=== PATIENT | female | born 1965 | race African-American/Black ===

== ENCOUNTER 2019-01-13 08:01 | Day surgery (SDC) | payer MEDICAID ==
[~2019-01-13 08:01] MED LIST: Midazolam 1 MG/ML 2 ML SDV ONE; Propofol 200 MG/20 ML SDV ONE; fentaNYL 100 MCG/2 ML SDV ONE
[2019-01-13] MEDS ORDERED: Lactated Ringers 1,000 ML IV SCH (08:45)
--- NOTE | 2019-01-13 10:01 | PCM.PREANE ---
Preanesthetic Assessment - Anesthesia/Transfusion/Family Hx Anesthesia History: Prior Anesthesia Without Reaction Family History of Anesthesia Reaction: No Transfusion History: No Prior Transfusion(s) Intubation History: Unknown - Review of Systems General: No Symptoms Pulmonary: No Symptoms Cardiovascular: No Symptoms Gastrointestinal: No Symptoms, Other (screening colonoscopy) Neurological: No Symptoms Other: Reports: None - Physical Assessment NPO Status Date: 01/12/19 NPO Status Time: 21:00 O2 Sat by Pulse Oximetry: 99 Respiratory Rate: 16 Vital Signs: Last Vital Signs Temp 36.3 C 01/13/19 08:42 Pulse 59 L 01/13/19 08:42 Resp 16 01/13/19 08:42 BP 117/71 01/13/19 08:42 Pulse Ox 99 01/13/19 08:42 Height: 5 ft 2 in Weight: 53.977 kg ASA Class: 2 Mental Status: Alert & Oriented x3 Airway Class: Mallampati = 1 Dentition: Reports: Missing Tooth/Teeth (only 3 teeth left) Thyro-Mental Finger Breadths: 3 Mouth Opening Finger Breadths: 3 ROM/Head Extension: Full Lungs: Clear to Auscultation, Normal Respiratory Effort Cardiovascular: Regular Rate, Regular Rhythm - Allergies Allergies/Adverse Reactions: Allergies Allergy/AdvReac Type Severity Reaction Status Date / Time Iodine and Iodide Containing Allergy Hives Verified 01/10/19 12:26 Produc - Blood Blood Available: No - Anesthesia Plan Pre-Op Medication Ordered: None - Acknowledgements Anesthesia Type Planned: MAC Pt an Appropriate Candidate for the Planned Anesthesia: Yes Alternatives and Risks of Anesthesia Discussed w Pt/Guardian: Yes Pt/Guardian Understands and Agrees with Anesthesia Plan: Yes PreAnesthesia Questionnaire HEENT History: Reports: None Cardiovascular History: Reports: Heart Murmur Respiratory History: Reports: Sleep Apnea Other Respiratory History: does not use CPAP Gastrointestinal History: Reports: GERD Genitourinary History: Reports: None [employer] History: Reports: , Other (See Below) (h/o ovarian cyst) Musculoskeletal History: Reports: Back Pain, Chronic, Fracture Other Musculoskeletal History: hx of fx ankle Neurological History: Reports: Migraines Psychiatric History: Reports: None Endocrine/Metabolic History: Reports: None Hematologic History: Reports: None Immunologic History: Reports: None Oncologic (Cancer) History: Reports: None Dermatologic History: Reports: None - Infectious Disease History Infectious Disease History: Reports: Chicken Pox - Past Surgical History Head Surgeries/Procedures: Reports: None Respiratory Surgical History: Reports: Other (See Below) Other Respiratory Surgeries/Procedures: pneumothorax x 2 Female Surgical History: Reports: Section, Tubal Ligation Musculoskeletal Surgical History: Reports: Arthroscopic Knee - SUBSTANCE USE Smoking Status *Q: Current Every Day Smoker (down to 4-5 cigarettes per day) Tobacco Use Within Last Twelve Months: Cigarettes Recreational Drug Use History: No - HOME MEDS Home Medications: Home Meds Diclofenac Sodium [Voltaren] 50 mg PO BID 01/10/19 [History] Nicotine [Habitrol] 14 mg TOP DAILY 01/10/19 [History] - CURRENT (IN HOUSE) MEDS Current Meds: Current Medications Lactated Ringer's (Ringers, Lactated) 1,000 mls @ 100 mls/hr IV ASDIRECTED [facility] Last Admin: 01/13/19 08:35 Dose: 100 mls/hr Discontinued Medications Fentanyl (Sublimaze) Confirm Administered Dose 100 mcg .ROUTE .STK-MED ONE Stop: 01/13/19 07:22 Midazolam HCl (Versed 1 Mg/Ml) Confirm Administered Dose 2 mg .ROUTE .STK-MED ONE Stop: 01/13/19 07:22 Propofol (Diprivan 20 Ml) Confirm Administered Dose 200 mg .ROUTE .STK-MED ONE Stop: 01/13/19 07:22
--- NOTE | 2019-01-13 12:03 | PCM.OPNOTE ---
- General Post-Op/Procedure Note Date of Surgery/Procedure: 01/13/19 Operative Procedure(s): Screening colonoscopy Findings: Normal colonoscopy Pre Op Diagnosis: Screening colonoscopy Post-Op Diagnosis: same Anesthesia Technique: MAC Primary Surgeon: Vero Benjamin Condition: Good
[2019-01-13 12:31] VITALS: BP 112/60
--- NOTE | 2019-01-13 12:31 | OR ---
SURGEON: VERO BENJAMIN MD DATE OF PROCEDURE: 01/13/2019 PREOPERATIVE DIAGNOSIS: Screening colonoscopy. POSTOPERATIVE DIAGNOSIS: Normal colonoscopy. PROCEDURE PERFORMED: Screening colonoscopy. PRIMARY SURGEON: Endoscopist, Vero Benjamin MD. ANESTHESIA: MAC. INSTRUMENT USED: Olympus colonoscope. EXTENT OF EXAM: To the cecum. PREPARATION: Good. LIMITATIONS: None. INDICATION FOR EXAMINATION: The patient is a 53-year-old female who presents for screening colonoscopy. The patient and I discussed the procedure, expected perioperative course, and risks including bleeding, infection, or damage to surrounding structures including perforation. The patient verbalized understanding and wishes to proceed. PROCEDURE IN DETAIL: The patient was brought into the endoscopy suite and placed in the left lateral decubitus position. A time-out was completed verifying the patient's name, age, date of , allergies, and procedure to be performed. Monitored anesthesia care was induced and continuous oxygen was provided via nasal cannula throughout the procedure. After adequate sedation was achieved, a digital rectal exam was performed. This exam showed mild hemorrhoidal disease. A well lubricated colonoscope was inserted into the rectum and advanced under direct visualization to the level of the cecum. The cecum was identified by both visual and anatomic landmarks. A photograph was taken of the cecal cap as well as with the scope retroflexed within the cecum. The scope was then fully withdrawn while examining the color, texture, anatomy, and integrity of the mucosa from the cecum to the anal canal. The findings were consistent with normal colonic mucosa. The scope was brought into the rectum and retroflexed to allow visualization of the anal canal opening. Again, some mild hemorrhoidal disease was noted. A photograph was taken and the scope was straightened out. The scope was then removed. The procedure was terminated. The cecum to anus time was 6 minutes. The patient tolerated the procedure well and was transferred to the PACU in stable condition. ENDOSCOPIC DIAGNOSIS: Normal colonoscopy. RECOMMENDATIONS: Follow up in clinic in 10 years. JAZMIN / TITA /[id number]
== END 2019-01-13 12:35 | disposition home or self-care (01) ==
LOC: MW.SDS 08:01
PROVIDERS: ATTEND Surgery
DX: Z12.11 Encounter for screening for malignant neoplasm of colon (principal); K64.9 Unspecified hemorrhoids; F17.210 Nicotine dependence, cigarettes, uncomplicated; K21.9 Gastro-esophageal reflux disease without esophagitis; G47.30 Sleep apnea, unspecified; G43.909 Migraine, unspecified, not intractable, without status migrainosus; M54.9 Dorsalgia, unspecified; G89.29 Other chronic pain; Z79.1 Long term (current) use of non-steroidal anti-inflammatories (NSAID); Z91.09 Other allergy status, other than to drugs and biological substances
CPT/HCPCS: 45378; J2001; J2250; J2704; J3010; J7120

== ENCOUNTER 2019-04-22 14:28 | Emergency (ER) | payer MEDICAID ==
--- NOTE | 2019-04-22 15:14 | EDM.PDOC ---
ED HPI GENERAL MEDICAL PROBLEM - General Chief Complaint: General Stated Complaint: ABDOMINAL PAIN AND SWOLLEN WRIST Time Seen by Provider: 04/22/19 14:45 Source of Information: Reports: Patient History Limitations: Reports: No Limitations - History of Present Illness INITIAL COMMENTS - FREE TEXT/NARRATIVE: HISTORY AND PHYSICAL: History of present illness: Patient is a 53-year-old female presents to the ED with complaint of abdominal pain x 7 days. She states she has had some nausea but denies vomiting, diarrhea , chest pain, SOB, fevers, chills. She denies significant past medical history. History of c-sections otherwise denies surgical history. She does have an appointment with Estefania Owens next week. Review of systems: As per history of present illness and below otherwise all systems reviewed and negative. Past medical history: As per history of present illness and as reviewed below otherwise noncontributory. Surgical history: As per history of present illness and as reviewed below otherwise noncontributory. Social history: No reported history of drug or alcohol abuse. Family history: As per history of present illness and as reviewed below otherwise noncontributory. Physical exam: General: Patient sitting comfortably in no acute distress and nontoxic appearing HEENT: Atraumatic, normocephalic, pupils reactive, negative for conjunctival pallor or scleral icterus, mucous membranes moist, throat clear, neck supple, nontender, trachea midline. No meningeal signs. Lungs: Clear to auscultation, breath sounds equal bilaterally, chest nontender. Heart: S1S2, regular, negative for clicks, rubs, or overt murmur. Abdomen: Soft, nondistended, nontender. Negative for masses or hepatosplenomegaly. Negative for costovertebral tenderness. No rigidity, rebound , guarding. Pelvis: Stable nontender. Genitourinary: Deferred. Rectal: Deferred. Extremities: Atraumatic, negative for cords or calf pain. Neurovascular unremarkable. Neuro: Awake, alert, oriented. Cranial nerves II through XII unremarkable. Cerebellum unremarkable. Motor and sensory unremarkable throughout. Exam nonfocal. Notes: Diagnostics: CBC, CMP, UA Therapeutics: none Prescriptions: Impression: Abdominal pain Plan: Alternate tylenol and ibuprofen as needed Follow up with primary care provider Return to ED as needed as discussed Definitive disposition and diagnosis as appropriate pending reevaluation and review of above. Abdominal Pain Score (Numeric/FACES): 10 - Related Data Allergies Allergy/AdvReac Type Severity Reaction Status Date / Time Iodine and Iodide Containing Allergy Hives Verified 04/22/19 14:45 Produc Home Meds: Home Meds . [No Known Home Meds] 04/22/19 [History] Past Medical History HEENT History: Reports: None Cardiovascular History: Reports: Heart Murmur Respiratory History: Reports: Sleep Apnea Other Respiratory History: does not use CPAP Gastrointestinal History: Reports: GERD Genitourinary History: Reports: None MAINTENANCE MGR History: Reports: , Other (See Below) Musculoskeletal History: Reports: Back Pain, Chronic, Fracture Other Musculoskeletal History: hx of fx ankle Neurological History: Reports: Migraines Psychiatric History: Reports: None Endocrine/Metabolic History: Reports: None Hematologic History: Reports: None Immunologic History: Reports: None Oncologic (Cancer) History: Reports: None Dermatologic History: Reports: None - Infectious Disease History Infectious Disease History: Reports: Chicken Pox, Measles - Past Surgical History Head Surgeries/Procedures: Reports: None Respiratory Surgical History: Reports: Other (See Below) Other Respiratory Surgeries/Procedures: pneumothorax x 2 Female Surgical History: Reports: Section, Tubal Ligation Musculoskeletal Surgical History: Reports: Arthroscopic Knee Social & Family History - Family History Family Medical History: Noncontributory - Tobacco Use Smoking Status *Q: Current Every Day Smoker Years of Tobacco use: 30 Packs/Tins Daily: 1 - Caffeine Use Caffeine Use: Reports: None - Recreational Drug Use Recreational Drug Use: No ED ROS GENERAL - Review of Systems Review Of Systems: ROS reveals no pertinent complaints other than HPI. ED EXAM, GENERAL - Physical Exam Exam: See Below (see dictation) Course - Vital Signs Last Recorded V/S: Last Vital Signs Temp 97.2 F 04/22/19 14:45 Pulse 74 04/22/19 14:45 Resp 17 04/22/19 14:45 BP 112/70 04/22/19 14:45 Pulse Ox 97 04/22/19 14:45 - Orders/Labs/Meds Labs: Laboratory Tests 04/22/19 04/22/19 04/22/19 Range/Units 14:55 15:00 15:00 WBC 8.33 (4.0-11.0) K/uL RBC 4.86 (4.30-5.90) M/uL Hgb 12.9 (12.0-16.0) g/dL Hct 39.1 (36.0-46.0) % MCV 80.5 (80.0-98.0) fL MCH 26.5 L (27.0-32.0) pg MCHC 33.0 (31.0-37.0) g/dL RDW Std Deviation 45.4 (28.0-62.0) fl RDW Coeff of Haris 16 H (11.0-15.0) % Plt Count 271 (150-400) K/uL MPV 10.60 (7.40-12.00) fL Neut % (Auto) 48.5 (48.0-80.0) % Lymph % (Auto) 41.2 H (16.0-40.0) % [place] % (Auto) 8.5 (0.0-15.0) % Eos % (Auto) 1.7 (0.0-7.0) % Baso % (Auto) 0.1 (0.0-1.5) % Neut # (Auto) 4.0 (1.4-5.7) K/uL Lymph # (Auto) 3.4 H (0.6-2.4) K/uL [place] # (Auto) 0.7 (0.0-0.8) K/uL Eos # (Auto) 0.1 (0.0-0.7) K/uL Baso # (Auto) 0.0 (0.0-0.1) K/uL Nucleated RBC % 0.0 /100WBC Nucleated RBCs # 0 K/uL Sodium 140 (136-145) mmol/L Potassium 3.9 (3.5-5.1) mmol/L Chloride 104 (98-107) mmol/L Carbon Dioxide 27.5 (21.0-32.0) mmol/L BUN 11 (7.0-18.0) mg/dL Creatinine 0.9 (0.6-1.0) mg/dL Est Cr Clr Drug Dosing 58.42 mL/min Estimated GFR (MDRD) > 60.0 ml/min Glucose 99 (74-106) mg/dL Calcium 9.1 (8.5-10.1) mg/dL Total Bilirubin 0.1 L (0.2-1.0) mg/dL AST 21 (15-37) IU/L ALT 24 (14-63) IU/L Alkaline Phosphatase 109 (46-116) U/L Total Protein 7.5 (6.4-8.2) g/dL Albumin 3.5 (3.4-5.0) g/dL Globulin 4.0 (2.6-4.0) g/dL Albumin/Globulin Ratio 0.9 (0.9-1.6) Urine Color YELLOW Urine Appearance CLEAR Urine pH 7.0 (5.0-8.0) Ur Specific [place] 1.020 (1.001-1.035) Urine Protein NEGATIVE (NEGATIVE) mg/dL Urine Glucose (UA) NEGATIVE (NEGATIVE) mg/dL Urine Ketones NEGATIVE (NEGATIVE) mg/dL Urine Occult Blood TRACE-INTACT H (NEGATIVE) Urine Nitrite NEGATIVE (NEGATIVE) Urine Bilirubin NEGATIVE (NEGATIVE) Urine Urobilinogen 0.2 (<2.0) EU/dL Ur Leukocyte Esterase NEGATIVE (NEGATIVE) Urine RBC 0-2 (0-2/HPF) Urine WBC 0-1 (0-5/HPF) Ur Epithelial Cells FEW (NONE-FEW) Urine Bacteria RARE (NEGATIVE) Departure - Departure Time of Disposition: 15:42 Disposition: Home, Self-Care 01 Condition: Good Clinical Impression: Abdominal pain - Discharge Information Referrals: Dania Downs PA [Primary Care Provider] - Forms: ED Department Discharge Additional Instructions: The following information is given to patients seen in the emergency department who are being discharged to home. This information is to outline your options for follow-up care. We provide all patients seen in our emergency department with a follow-up referral. The need for follow-up, as well as the timing and circumstances, are variable depending upon the specifics of your emergency department visit. If you don't have a primary care physician on staff, we will provide you with a referral. We always advise you to contact your personal physician following an emergency department visit to inform them of the circumstance of the visit and for follow-up with them and/or the need for any referrals to a consulting specialist. The emergency department will also refer you to a specialist when appropriate. This referral assures that you have the opportunity for follow-up care with a specialist. All of these measure are taken in an effort to provide you with optimal care, which includes your follow-up. Under all circumstances we always encourage you to contact your private physician who remains a resource for coordinating your care. When calling for follow-up care, please make the office aware that this follow-up is from your recent emergency room visit. If for any reason you are refused follow-up, please contact the [facility] Emergency Department at and asked to speak to the emergency department charge nurse. [facility] [address] [place] [id number] [id number] Alternate tylenol and ibuprofen as needed Follow up with primary care provider Return to ED as needed as discussed
[2019-04-22 15:36] LABS: BLOOD UREA NITROGEN,BUN 11 mg/dL (7.0-18.0); CARBON DIOXIDE,CO2 27.5 mmol/L (21.0-32.0); CHLORIDE,CL 104 mmol/L (98-107); GLUCOSE RANDOM 99 mg/dL (74-106); POTASSIUM,K 3.9 mmol/L (3.5-5.1); SODIUM,NA 140 mmol/L (136-145)
[2019-04-22 17:03] VITALS: BP 103/66; PULSE 68
== END 2019-04-22 16:00 | disposition home or self-care (01) ==
LOC: MW.ED 14:28
DX: R10.9 Unspecified abdominal pain (principal); F17.210 Nicotine dependence, cigarettes, uncomplicated; Z91.041 Radiographic dye allergy status
CPT/HCPCS: 36415; 80053; 81001; 85025; 99284